=== PATIENT | male | born 1965 | race Caucasian/White ===

== ENCOUNTER 2017-01-09 03:43 | Emergency (ER) | payer OTHER ==
[~2017-01-09] VITALS: Ht 182.9 cm; Wt 75.0 kg
[~2017-01-09 03:43] MED LIST: METF500T4 PO
[2017-01-09 03:57] LABS: GLUCOSE,POINT OF CARE 423 MG/DL (70-110)
[2017-01-09 06:07] VITALS: BP 137/83
[2017-01-09 06:34] LABS: APPEARANCE,URINE CLEAR (CLEAR); GLUCOSE, URINE (UA) >=1000 mg/dL (NEGATIVE); KETONES,URINE NEGATIVE (NEGATIVE); LEUKOCYTE ESTERASE ,URINE NEGATIVE (NEGATIVE); OCCULT BLOOD,URINE NEGATIVE (NEGATIVE); PH,URINE 5.5 (5.0-8.0); PROTEIN,URINE NEGATIVE (NEGATIVE)
[2017-01-09 06:35] LABS: ADD UA MICROSCOPIC YES
[2017-01-09 06:48] LABS: RBC,URINE None Seen /HPF (0-2); WBC,URINE 0-2 /HPF (0-5)
== END 2017-01-09 06:11 | disposition home or self-care (01) ==
LOC: EMS 03:45
DX: E11.65 Type 2 diabetes mellitus with hyperglycemia (principal); F12.90 Cannabis use, unspecified, uncomplicated
CPT/HCPCS: 82962; 99283

== ENCOUNTER 2017-07-07 20:03 | Emergency (ER) | payer OTHER ==
[~2017-07-07] VITALS: Ht 180.3 cm; Wt 77.0 kg
[2017-07-07 20:13] LABS: GLUCOSE,POINT OF CARE 479 MG/DL (70-110)
[2017-07-07] MEDS ORDERED: INSULIN REGULAR, HUMAN 100 UNITS/ML IVP ONE (20:30)
[2017-07-07] MEDS ORDERED: KETOROLAC TROMETHAMINE 30 MG/ML VIAL IVP ONE (20:30)
[2017-07-07] MEDS ORDERED: SODIUM CHLORIDE 0.9% 1,000 ML IV ONE (20:30)
[2017-07-07 20:55] LABS: ANION GAP 10 mmol/L (8-16); CALCIUM, TOTAL 9.3 mg/dL (8.8-10.5); CARBON DIOXIDE 28 mmol/L (22-29); CHLORIDE 95 mmol/L (98-107); CREATININE 1.19 mg/dL (0.60-1.30); GLOMERULAR FILTR. RATE CALC > 60 mL/min (>60); SODIUM SERUM 133 mmol/L (136-145); UREA NITROGEN, BLOOD 14 mg/dL (7-18)
[2017-07-07 20:58] LABS: GLUCOSE,RANDOM 572 mg/dL (70-110)
[2017-07-07 21:30] VITALS: BP 135/85
[2017-07-07 22:03] LABS: GLUCOSE,POINT OF CARE 242 MG/DL (70-110)
== END 2017-07-07 22:12 | disposition home or self-care (01) ==
LOC: EMS 20:06
DX: M79.1 Myalgia (principal); E11.65 Type 2 diabetes mellitus with hyperglycemia; Z90.49 Acquired absence of other specified parts of digestive tract; Z59.0 Homelessness
CPT/HCPCS: 36415; 71045; 80048; 82948; 82962; 96374; 96375; 99285; J1815; J1885; J7030

== ENCOUNTER 2017-08-29 00:17 | Emergency (ER) | payer OTHER ==
[~2017-08-29] VITALS: Ht 182.9 cm; Wt 77.0 kg
[2017-08-29 00:37] LABS: GLUCOSE,POINT OF CARE 321 MG/DL (70-110)
[2017-08-29 01:46] VITALS: BP 149/90
== END 2017-08-29 01:47 | disposition home or self-care (01) ==
LOC: EMS 00:18
DX: R07.89 Other chest pain (principal); E11.9 Type 2 diabetes mellitus without complications; F12.90 Cannabis use, unspecified, uncomplicated
CPT/HCPCS: 71046; 82962; 99284